=== PATIENT | male | born 1970 | race African-American/Black ===

== ENCOUNTER 2016-10-31 11:52 | Emergency (ER) | payer MEDICAID, OTHER ==
[~2016-10-31] VITALS: Ht 180.3 cm; Wt 81.6 kg
[~2016-10-31 11:52] MED LIST: ALBUTEROL SULF8.5 GM INH; ALBUTEROL0.63 MG/3 HHN; ALBUTEROL1.25 MG/3 HHN; ALBUTEROL2.5 MG/3 M HHN; AZITHROMYCIN250 MG ORAL; CLARITIN10 MG ORAL; DULERA 100 MCG/13 GM INH; DULERA 200 MCG/13 GM IH; GUAIFENESIN DM118 M1 ORAL; GUAIFENESIN-CO118 M1 ORAL; IBUPROFEN600 MG PO; METOPROLOL TART50 MG ORAL; NORCO 5-325 TA1 EACH ORAL; PREDNISONE20 MG ORAL; PREDNISONE20 MG PO; PREDNISONE50 MG ORAL; PREDNISONE50 MG PO; PROAIR HFA8.5 GM INH; PROMETHAZINE-D118 ML PO; ROBITUSSIN DM5 ML PO; TESSALON PERLE100 MG PO; VALIUM5 MG ORAL; ZITHROMAX250 MG ORAL
[2016-10-31] MEDS ORDERED: Solu-MEDROL 125mg Inj IVP ONE (12:30)
[2016-10-31 13:00] VITALS: BP 130/81
[2016-10-31] MEDS: DuoNeb 0.5-3(2.5)mg/3ml neb HHN SCH ×2 (13:23→13:30)
[2016-10-31] MEDS ORDERED: PredniSONE 20mg tab ORAL ONE (14:00)
[2016-10-31] MEDS ORDERED: GUAIFENESIN AC473 ML ORAL (14:04)
[2016-10-31] MEDS ORDERED: VENTOLIN HFA18 GM INH (14:04)
[2016-10-31] MEDS ORDERED: PREDNISONE20 MG ORAL (14:04)
[2016-10-31 14:19] VITALS: BP 130/81
--- NOTE | 2016-10-31 14:22 | Emergency Room Report ---
History of Present Illness General Chief Complaint: Upper Respiratory Illness Source: Patient Present Illness HPI Patient complains of asthma exacerbation for 2 days. Patient states that he has wheezing with allergy symptoms and a cough. States that he's taking dulera with mild improvement of symptoms. No provoking factors. States this happens to him every year around this time. Denies any current n/v/f/c/d, abd pain, back pain, neck pain, photophobia, phonophobia, CP or headache. Allergies: Coded Allergies: No Known Allergies (Unverified , 07/27/12) Patient History Past Medical History: see triage record Pertinent Family History: none Immunizations: UTD Reviewed Nursing Documentation: PMH: Agreed, PSxH: Agreed Nursing Documentation-PMH Past Medical History: No History, Except For Hx Cardiac Problems: No Hx Asthma: Yes Hx Cancer: No Hx Gastrointestinal Problems: No Hx Neurological Problems: No Review of Systems All Other Systems: negative except mentioned in HPI Physical Exam Vital Signs Date Time Temp Pulse Resp B/P Pulse Ox O2 Delivery O2 Flow Rate FiO2 10/31/16 12:45 98.4 72 18 130/81 95 Room Air Sp02 EP Interpretation: reviewed, normal General Appearance: no apparent distress, alert, GCS 15, non-toxic Head: normocephalic, atraumatic Eyes: bilateral eye PERRL, bilateral eye Scleral Injection, bilateral eye normal inspection ENT: hearing grossly normal, normal pharynx, no angioedema, normal voice Neck: full range of motion, supple/symm/no masses Respiratory: chest non-tender, no respiratory distress - speaking full sentances, no retraction, no accessory muscle use, speaking full sentences, wheezing - throughout Cardiovascular #1: regular rate, rhythm, no edema Neurologic: alert, oriented x3, responsive, motor strength/tone normal, sensory intact, speech normal Psychiatric: judgement/insight normal, memory normal, mood/affect normal, no suicidal/homicidal ideation Skin: normal color, no rash, warm/dry, well hydrated Lymphatic: no adenopathy Medical Decision Making PA Attestation Dr. Angel is my supervising physician with whom patient management has been discussed with. Diagnostic Impression: Primary Impression: Upper respiratory infection Qualified Codes: J06.9 - Acute upper respiratory infection, unspecified; B97.89 - Other viral agents as the cause of diseases classified elsewhere ER Course Pt. presents to the ED c/o of asthma sxs Ddx considered but are not limited to bronchitis, pneumonia, viral upper respiratory tract infection, asthma exacerbation Vital signs: are WNL, pt. is afebrile H&PE are most consistent with asthma exacerbation ORDERS: CXR (patient was removed by security due to aggression and hostility towards hospital staff members) ED INTERVENTIONS: Steroids and Duoneb DISCHARGE: care was transferred.Dr. Angel Last Vital Signs Date Time Temp Pulse Resp B/P Pulse Ox O2 Delivery O2 Flow Rate FiO2 10/31/16 12:45 98.4 72 18 130/81 95 Room Air Disposition: HOME, SELF-CARE Condition: Improved Scripts Guaifenesin/Codeine Phosphate (GUAIFENESIN AC COUGH SYRUP) 473 Ml Liquid 1 TSP ORAL Q8H Y for For Cough, #473 ML 0 Refills Prov: MARIANNE ANGEL M.D. 10/31/16 Albuterol Sulfate (VENTOLIN HFA) 18 Gm Hfa.aer.ad 1 PUFF INH EVERY 6 HOURS for For Cough, #18 GM 0 Refills Prov: MARIANNE ANGEL M.D. 10/31/16 Prednisone* (PREDNISONE*) 20 Mg Tablet 40 MG ORAL DAILY for 3 Days, #3 TAB Prov: MARIANNE ANGEL M.D. 10/31/16 Departure Forms: Return to Work Return to Work in (Days): 3 Return to Work Date: Nov 05, 2016 Work Restrictions: None Patient Instructions: Upper Respiratory Infection, Adult Additional Instructions: - Take prednisone next 3 days starting Tuesday morning - Cough medicine as needed for cough - Follow up with your doctor in 2-3 days MALIA SPAIN Oct 31, 2016 14:22
== END 2016-10-31 14:00 | disposition home or self-care (01) ==
LOC: EMR 12:26
DX: J06.9 Acute upper respiratory infection, unspecified (principal); B97.89 Other viral agents as the cause of diseases classified elsewhere; J45.909 Unspecified asthma, uncomplicated
CPT/HCPCS: J7620

== ENCOUNTER 2017-04-01 13:07 | Emergency (ER) | payer OTHER ==
[~2017-04-01] VITALS: Ht 172.7 cm; Wt 91.2 kg
[~2017-04-01 13:07] MED LIST changes: +GUAIFENESIN AC473 ML ORAL; +VENTOLIN HFA18 GM INH
[2017-04-01] MEDS ORDERED: Ipratropium 0.02% Inh Soln 2.5ml UD HHN ONE ×2 (13:30→14:15)
[2017-04-01] MEDS ORDERED: Albuterol ud Inhalation HHN ONE ×2 (13:30→14:15)
[2017-04-01] MEDS ORDERED: PredniSONE 20mg tab ORAL ONE (14:15)
[2017-04-01] MEDS ORDERED: PREDNISONE20 MG ORAL (14:41)
[2017-04-01] MEDS ORDERED: GUAIFENESI100 MG/5 M ORAL (14:41)
[2017-04-01] MEDS ORDERED: ALBUTEROL2.5 MG/3 M INH (14:44)
[2017-04-01 14:50] VITALS: BP 149/90
--- NOTE | 2017-04-01 16:02 | Emergency Room Report ---
History of Present Illness General Chief Complaint: Asthma Source: Patient, Medical Record Present Illness HPI The patient is a 46-year-old female with a history of asthma presenting for a feeling of shortness of breath. She states that she has run out of her medication for nebulizer for the past week and has been unable to followup with primary doctor. She has tried Ventolin and Dulera inhalers which have not been helping. She denies any sick contacts or recent travel. She denies other symptoms including nausea, vomiting, fever, chills, chest pain, cough Allergies: Coded Allergies: No Known Allergies (Unverified , 07/27/12) Patient History Past Medical History: see triage record Pertinent Family History: none Last Menstrual Period: 03/10/17 Reviewed Nursing Documentation: PMH: Agreed, PSxH: Agreed Nursing Documentation-PMH Past Medical History: No History, Except For Hx Cardiac Problems: No Hx Asthma: Yes Hx Cancer: No Hx Gastrointestinal Problems: No Hx Neurological Problems: No Review of Systems All Other Systems: negative except mentioned in HPI Physical Exam Vital Signs Date Time Temp Pulse Resp B/P Pulse Ox O2 Delivery O2 Flow Rate FiO2 04/01/17 13:12 98.4 77 16 158/88 96 Room Air 04/01/17 14:05 96 Sp02 EP Interpretation: reviewed, normal General Appearance: no apparent distress, alert, GCS 15, non-toxic Head: normocephalic, atraumatic Eyes: bilateral eye PERRL, bilateral eye normal inspection ENT: hearing grossly normal, normal pharynx, no angioedema, normal voice Neck: full range of motion, supple/symm/no masses Respiratory: chest non-tender, no accessory muscle use, speaking full sentences , wheezing - diffuse Cardiovascular #1: regular rate, rhythm, no edema Musculoskeletal: back normal, gait/station normal, normal range of motion, non- tender Neurologic: alert, oriented x3, responsive, motor strength/tone normal, sensory intact, speech normal Psychiatric: judgement/insight normal, memory normal, mood/affect normal, no suicidal/homicidal ideation Skin: normal color, no rash, warm/dry, well hydrated Lymphatic: no adenopathy Medical Decision Making PA Attestation Dr. Portillo is my supervising physician. Patient management was discussed with my supervising physician Diagnostic Impression: Primary Impression: Asthma Qualified Codes: J45.41 - Moderate persistent asthma with (acute) exacerbation ER Course The patient is a 46-year-old female presenting for asthma Differential diagnoses considered but not limited to: Asthma exacerbation, bronchitis, pneumonia, anxiety Physical exam: Vitals within normal limits. No apparent distress HEENT exam is unremarkable Lungs: Decreased breath sounds and wheezing bilaterally. Chest is nontender. No respiratory distress. No accessory muscle use. The patient was given a breathing treatment x2 and is feeling much better.60mg prednisone given. Lungs sounds have improved Patient is discharged home with a prescription for albuterol and steroids and will followup with PMD. ER precautions are given Last Vital Signs Date Time Temp Pulse Resp B/P Pulse Ox O2 Delivery O2 Flow Rate FiO2 04/01/17 14:50 98 18 149/90 96 Room Air 04/01/17 14:10 21 04/01/17 13:12 98.4 Status: improved Disposition: HOME, SELF-CARE Condition: Improved Scripts Albuterol Sulfate* (ALBUTEROL SULFATE HHN*) 2.5 Mg/3 Ml Vial.neb 3 ML INH Q6H Y for Shortness of Breath, #30 EA 0 Refills Prov: SHILA GOMEZA. 04/01/17 Guaifenesin* (GUAIFENESIN) 100 Mg/5 Ml Liquid 10 ML ORAL Q6HR, #200 ML 0 Refills Prov: SHILA GOMEZ.A. 04/01/17 Prednisone* (PREDNISONE*) 20 Mg Tablet 40 MG ORAL DAILY, #10 TAB Prov: SHILA GOMEZ P.A. 04/01/17 Patient Instructions: Asthma, Adult Additional Instructions: I discussed my findings with the patient. All questions and concerns have been answered. Treatment and medication compliance have been addressed. I advised the patient that they need to follow up with PMD in 3-5 days. Return to ED if pain remains or worsens, cough worsens or remains, you notice blood in your sputum, you notice wheezing, you experience a fever, or if needed for any reason. Patient verbalized understanding of discharge instructions. SHILA GOMEZ Apr 01, 2017 16:02
== END 2017-04-01 15:07 | disposition home or self-care (01) ==
LOC: EMR 13:50
DX: J45.909 Unspecified asthma, uncomplicated (principal)
CPT/HCPCS: 94640; 94664; 99284

== ENCOUNTER 2017-06-06 06:59 | Emergency (ER) | payer OTHER ==
[~2017-06-06] VITALS: Ht 175.3 cm; Wt 86.2 kg
[~2017-06-06 06:59] MED LIST changes: +ALBUTEROL2.5 MG/3 M INH; +GUAIFENESI100 MG/5 M ORAL
[2017-06-06] MEDS ORDERED: ALBUTEROL SULF8.5 GM INH (07:28)
[2017-06-06] MEDS ORDERED: TESSALON PERLE100 M2 ORAL (07:28)
--- NOTE | 2017-06-06 07:37 | Emergency Room Report ---
History of Present Illness General Chief Complaint: Upper Respiratory Illness Source: Patient Present Illness HPI 47-year-old female with history of asthma, hypertension p/w SOB for 1 day. Patient states SOB began gradually. SOB occurs both at rest and on exertion. + non productive cough. Denies chest pain. Patient has been using albuterol inhaler however states that she ran out yesterday. Patient has nebulizer but states "I don't think the liquid works". No recent steroid use. Pt states that this episode is similar to other episodes of asthma exacerbation. Denies fever, chills. Denies sick contacts or recent travel. Patient denies history of ICU admissions, intubations, or usage of BIPAP for asthma. Denies history of PE/DVT, no recent surgeries, prolonged immobilization, malignancy, or use of OCPs/HRT. Allergies: Coded Allergies: No Known Allergies (Unverified , 07/27/12) Patient History Past Medical History: see triage record Past Surgical History: none Pertinent Family History: none Last Menstrual Period: One week ago Now: No Reviewed Nursing Documentation: PMH: Agreed, PSxH: Agreed Nursing Documentation-PMH Hx Cardiac Problems: No Hx Asthma: Yes Hx Cancer: No Hx Gastrointestinal Problems: No Hx Neurological Problems: No Review of Systems All Other Systems: negative except mentioned in HPI Physical Exam Vital Signs Date Time Temp Pulse Resp B/P (MAP) Pulse Ox O2 Delivery O2 Flow Rate FiO2 06/06/17 07:05 76 20 Room Air 06/06/17 07:05 98.4 158/101 97 Sp02 EP Interpretation: reviewed, normal General Appearance: alert, GCS 15, non-toxic, other - Appears mildly short of breath however she is speaking in complete sentences Head: normocephalic, atraumatic Eyes: bilateral eye normal inspection, bilateral eye PERRL, bilateral eye EOMI ENT: normal ENT inspection, normal pharynx, normal voice, moist mucus membranes Neck: normal inspection, full range of motion, supple Respiratory: no retraction, speaking full sentences, other - Expiratory wheezing bilaterally, no tachypnea or retractions, chest symmetrical Cardiovascular #1: normal inspection, regular rate, rhythm, no edema, normal capillary refill Cardiovascular #2: 2+ radial (R), 2+ radial (L) Gastrointestinal: normal inspection, non tender, soft, non-distended, no guarding Musculoskeletal: normal inspection, back normal, normal range of motion, non- tender Neurologic: normal inspection, alert, oriented x3, responsive, motor strength/ tone normal, sensory intact, normal gait, speech normal Psychiatric: normal inspection, judgement/insight normal, memory normal Skin: normal inspection, normal color, no rash, warm/dry, well hydrated, normal turgor Medical Decision Making Diagnostic Impression: Primary Impression: Asthma exacerbation ER Course 47-year-old female with history of asthma p/w SOB DDX: asthma exacerbation, upper respiratory infection/viral syndrome PE is unlikely given other likely diagnoses which is more likely in this patients given clinical scenario and physical examination. Furthermore, there is no history of DVT/PE. PERC negative. No risk factors such as OCPs, prolonged immobilizations, recent surgeries, hypercoagulability. Plan: combivent nebulizer treatment x 3, steroids Anticipate discharge as patient appears very well ER Course: Patient has been treated with combivent x 3, steroids. Patient's overall respiratory status has improved in ED. Patient states improvement of symptoms. Patient continues to speak in complete sentences and is not in respiratory distress. Repeat lung auscultation: good air entry with minimal/no wheezing. Repeat VS reveals normal RR and SpO2. Disposition: Patient will be discharged to home with course of steroids, albuterol inhaler, cough medicne. Patient is instructed to use albuterol inhaler as needed. Antibiotics are not indicated at this time. Strict precautions are discussed with patient on when to emergently return to the ED including: persistent or worsening SOB, chest pain, fever, chills, which could indicate severe illness. Patient verbalized understanding. Patient is to follow up with her/his PMD within 5 days. Patient agrees with plan. Please note that this Emergency Department Report was dictated using [employer] software, occasionally this can lead to erroneous entry secondary to interpretation by the dictation equipment. Last Vital Signs Date Time Temp Pulse Resp B/P (MAP) Pulse Ox O2 Delivery O2 Flow Rate FiO2 06/06/17 07:05 98.4 76 20 158/101 97 Room Air Disposition: HOME, SELF-CARE Condition: Improved Scripts Prednisone* (PREDNISONE*) 20 Mg Tablet 40 MG ORAL DAILY for 4 Days, #8 TAB 0 Refills Prov: Zack Vizcarra M.D. 06/06/17 Benzonatate (Tessalon Perle) 100 Mg Capsule 100 MG ORAL THREE TIMES A DAY for 5 Days, #15 PERLE 0 Refills Prov: Zack Vizcarra M.D. 06/06/17 Albuterol Sulfate* (ALBUTEROL SULFATE MDI*) 8.5 Gm Hfa.aer.ad 2 PUFF INH Q4H Y for cough/wheezing, #1 EA 0 Refills Prov: Zack Vizcarra M.D. 06/06/17 Patient Instructions: Asthma, Adult, [id number] Zack Vizcarra M.D. Jun 06, 2017 07:37
[2017-06-06] MEDS: Ipratropium 0.02% Inh Soln 2.5ml UD HHN SCH ×3 (07:48→08:10)
[2017-06-06] MEDS: Albuterol ud Inhalation HHN SCH ×3 (07:48→08:10)
[2017-06-06 08:30] VITALS: BP 147/101
[2017-06-06] MEDS ORDERED: PREDNISONE20 MG ORAL (08:39)
[2017-06-06 09:00] VITALS: BP 147/101
== END 2017-06-06 09:00 | disposition home or self-care (01) ==
LOC: EMR 07:30
DX: J45.901 Unspecified asthma with (acute) exacerbation (principal)
CPT/HCPCS: 94640; 94664; 99284

== ENCOUNTER 2018-03-16 14:55 | Emergency (ER) | payer OTHER ==
[~2018-03-16] VITALS: Ht 172.7 cm; Wt 72.6 kg
[~2018-03-16 14:55] MED LIST changes: +TESSALON PERLE100 M2 ORAL
[2018-03-16 15:00] VITALS: BP 160/98
--- NOTE | 2018-03-16 15:09 | Emergency Room Report ---
History of Present Illness General Chief Complaint: Shortness of breath Present Illness HPI Patient is a 47-year-old female presented after increased difficulty breathing. Patient prior history of asthma. She denies current smoking. She reports having recently been prescribed prednisone however she lost her prescription. She denies any fever. She reports having increased sputum production. Allergies: Coded Allergies: No Known Allergies (Unverified , 03/16/18) Patient History Past Medical History: see triage record Reviewed Nursing Documentation: PMH: Agreed; PSxH: Agreed Nursing Documentation-PMH Hx Cardiac Problems: No Hx Asthma: Yes Hx Cancer: No Hx Gastrointestinal Problems: No Hx Neurological Problems: No Review of Systems All Other Systems: negative except mentioned in HPI Physical Exam General Appearance: well appearing, no apparent distress, alert, GCS 15 Head: normocephalic, atraumatic ENT: hearing grossly normal, normal voice Neck: full range of motion, supple Respiratory: lungs clear, normal breath sounds, no respiratory distress, speaking full sentences Cardiovascular #1: normal peripheral pulses, regular rate, rhythm, no edema Gastrointestinal: normal inspection, normal bowel sounds, non tender, soft Musculoskeletal: normal inspection, digits/nails normal, no calf tenderness Neurologic: normal inspection, alert, oriented x3, responsive, burrer marker axle III-XII nml as tested, motor strength/tone normal, normal gait Psychiatric: mood/affect normal Skin: no rash Medical Decision Making Diagnostic Impression: Primary Impression: Asthma attack ER Course Patient presented for shortness of breath. Differential included but was not limited to anemia, pneumonia, pneumothorax, myocardial infarction, pericardial effusion, congestive heart failure, acidosis. Patient has a benign exam and does not appear to require any further imaging or laboratory testing at this time. The patient was given breathing treatments as well as oral steroids.Patient was noted to have improvement in her breathing after breathing treatments. At the time of discharge patient was moving air well. She was in no respiratory distress.The patient is advised to follow up with primary care doctor in 1-2 days. Patient is advised to return if any worsening condition or if any changes in status that are concerning. This report is dictated with [employer] software which may occasionally lead to discrepancies related to use of this software. Labs Test 03/16/18 15:00 Urine Color Yellow Urine Appearance Clear Urine pH 7 (4.5-8.0) Urine Specific [place] 1.015 (1.005-1.035) Urine Protein Negative (NEGATIVE) Urine Glucose (UA) Negative (NEGATIVE) Urine Ketones Negative (NEGATIVE) Urine Occult Blood Negative (NEGATIVE) Urine Nitrite Negative (NEGATIVE) Urine Bilirubin Negative (NEGATIVE) Urine Urobilinogen 4 MG/DL (0.0-1.0) Urine Leukocyte Esterase Negative (NEGATIVE) Urine HCG, Qualitative Negative (NEGATIVE) Urine Opiates Screen Negative (NEGATIVE) Urine Barbiturates Screen Negative (NEGATIVE) Phencyclidine (PCP) Screen Positive (NEGATIVE) Urine Amphetamines Screen Positive (NEGATIVE) Urine Benzodiazepines Screen Negative (NEGATIVE) Urine Cocaine Screen Negative (NEGATIVE) Urine Marijuana (THC) Screen Positive (NEGATIVE) Status: improved Disposition: HOME, SELF-CARE Condition: Stable Scripts Albuterol Sulfate* (ALBUTEROL SULFATE MDI*) 8.5 Gm Hfa.aer.ad 2 PUFF INH Q4H PRN for cough/wheezing, #1 EA 0 Refills Prov: Nolan Portillo MD 03/16/18 Prednisone* (PREDNISONE*) 20 Mg Tablet 60 MG ORAL DAILY, #12 TAB Prov: Nolan Portillo MD 03/16/18 Nolan Portillo MD Mar 16, 2018 15:09
[2018-03-16] MEDS ORDERED: Albuterol/Ipratropium 3ml neb HHN ONE (15:15)
[2018-03-16 15:23] LABS: APPEARANCE,URINE CLEAR; BILIRUBIN, URINE NEGATIVE (NEGATIVE); GLUCOSE, URINE (UA) NEGATIVE (NEGATIVE); KETONES,URINE NEGATIVE (NEGATIVE); LEUKOCYTE ESTERASE ,URINE NEGATIVE (NEGATIVE); NITRITE,URINE NEGATIVE (NEGATIVE); PH,URINE 7 (4.5-8.0); PROTEIN,URINE NEGATIVE (NEGATIVE); UROBILINOGEN,URINE 4 MG/DL (0.0-1.0)
[2018-03-16 15:24] LABS: COLOR,URINE YELLOW
[2018-03-16] MEDS ORDERED: Albuterol ud Inhalation HHN ONE (15:30)
[2018-03-16] MEDS ORDERED: PREDNISONE20 MG ORAL (15:56)
[2018-03-16] MEDS ORDERED: ALBUTEROL SULF8.5 GM INH (15:56)
[2018-03-16 16:07] VITALS: BP 144/88
== END 2018-03-16 16:00 | disposition home or self-care (01) ==
LOC: EMR 15:28
DX: J45.909 Unspecified asthma, uncomplicated (principal)
CPT/HCPCS: 80307; 81003; 81025; 94640; 94664; 99284; J7512; J7620